=== PATIENT | female | born 1940 | race Caucasian/White ===

== ENCOUNTER → 2017-01-08 | Outpatient (CLI) | payer OTHER, MEDICAID | LOC: BMCIMAGING 10:35 | PROVIDERS: ATTEND Internal Medicine Rheumatology | DX: M17.12 Unilateral primary osteoarthritis, left knee (principal) ==

== ENCOUNTER → 2018-09-10 | Outpatient (CLI) | payer OTHER, MEDICAID | LOC: BMCIMAGING 12:31 | PROVIDERS: ATTEND Internal Medicine Rheumatology | DX: M19.041 Primary osteoarthritis, right hand (principal); M19.042 Primary osteoarthritis, left hand; M25.711 Osteophyte, right shoulder; M75.51 Bursitis of right shoulder; M17.12 Unilateral primary osteoarthritis, left knee ==